=== PATIENT | male | born 1990 | race Caucasian/White ===

== ENCOUNTER 2023-01-19 09:15 | Emergency (ER) | payer SELFPAY ==
--- NOTE | ~2023-01-19 | CT_ITS ---
EXAMINATION: CT abdomen pelvis w con DATE: 01/19/2023 11:01 INDICATION: Right upper quadrant and epigastric pain TECHNIQUE: Computed tomography (CT) of the abdomen and pelvis was performed with 100 cc Omnipaque 350 intravenous contrast. The dose-length product was 703.41 mGy-cm. Automated exposure control and iter ative reconstruction technique were employed. COMPARISON: None. FINDINGS: Lung bases are unremarkable. No significant pleural or pericardial effusion. Heart size nor mal. No significant vascular abnormality. There are mildly prominent retroperitoneal lymph nodes, lik jacquelin reactive. The liver, spleen, pancreas, adrenal glands and left kidney are unremarkable. There is a 1.3 cm left renal cyst. Gallbladder is present. Nonobstructive bowel pattern. No abnormal pelvic masses or fluid collections. IMPRESSION: 1. No acute abdominal abnormality. Reviewed, dictated and finalized at location []
--- NOTE | ~2023-01-19 | US_ITS ---
US right upper quadrant INDICATION: Biliary colic. Cholecystitis. PROCEDURE: Realtime right upper abdominal ultrasound. COMPARISON: No prior studies for comparison. FINDINGS: The pancreas is normal without focal mass or pancreatic ductal dilation. Liver echotexture is normal without focal mass or intrahepatic biliary dilatation. There is normal directional flow i n the portal vein. The gallbladder is normal without stones, gallbladder wall thickening or pericholecystic fluid. Comm on bile duct measures 2 mm. No sonographic Saez's sign. IMPRESSION: 1: Normal limited abdominal ultrasound. Reviewed, dictated and finalized at location []
--- NOTE | ~2023-01-19 | XR_ITS ---
EXAMINATION: XR chest 1V portable 01/19/2023 10:47 INDICATION: Dyspnea. Right upper quadrant and epigastric pain. PROCEDURE: AP portable chest COMPARISON: No prior studies for comparison. FINDINGS: The lungs are clear. The cardiomediastinal silhouette is within normal limits. There are no pleural effusions. There is no pneumothorax suspected. IMPRESSION: 1: NO ACUTE CARDIOPULMONARY DISEASE. Reviewed, dictated and finalized at location []
[2023-01-19 09:27] VITALS: BP 131/63; PULSE 99; RESP 18; TEMP 36.9; O2SAT 97
[2023-01-19 09:33] LABS: Basophils Percent Auto 0.2 % (0.2-1.2); Eosinophils Absolute Auto 0.1 K/mm3 (0-0.3); Eosinophils Percent Auto 1.6 % (0-4.4); Hematocrit 50.7 % (42.0-52.0); Hemoglobin 16.8 g/dL (14.0-18.0); Immature Granulocyte Absolute 0.03 K/mm3 (0.00-0.031); Immature Granulocyte Percent A 0.4 % (0-0.5); Lymphocytes Absolute Auto 1.94 K/mm3 (0.9-3.2); Lymphocytes Percent Auto 23.8 % (18.3-44.2); Mean Corpuscular HGB Conc 33.1 g/dl (32-36); Mean Corpuscular Hemoglobin 30.8 pg (26-34); Mean Corpuscular Volume 92.9 fl (80-100); Mean Platelet Volume 10.6 fl (7.4-10.4); Monocytes Absolute Auto 0.5 K/mm3 (0.1-0.6); Monocytes Percent Auto 5.6 % (2.6-8.5); Neutrophils Absolute Auto 5.6 K/mm3 (1.3-6.7); Neutrophils Percent Auto 68.4 % (45.5-73.1); Platelet Count Result 225 k/mm3 (150-375); Red Blood Count 5.46 M/mm3 (4.6-6.20); Red Cell Distribution Width 13.7 % (11.5-14.5); White Blood Count 8.2 K/mm3 (4.5-10.0)
[2023-01-19 09:51] LABS: Alanine Aminotransferase 62 U/L (6-50); Albumin Level 4.6 g/dL (3.5-5.1); Alkaline Phosphatase 78 U/L (38-126); Anion Gap 7 mmol/L (8-16); Aspartate Amino Transferase 75 U/L (17-59); Bilirubin,Total 0.7 mg/dL (0.2-1.3); Blood Urea Nitrogen 20 mg/dL (9-20); Carbon Dioxide 30 mmol/L (22-30); Chloride 104 mmol/L (98-107); Estimated CRCL calculation 110 ml/min; Estimated Glomerular Filt Rate > 60; Glucose 107 mg/dL (65-110); Lipase 69 U/L (23-300); Potassium 4.5 mmol/L (3.4-5.0); Sodium 141 mmol/L (137-145)
--- NOTE | 2023-01-19 09:51 | ED.ABDPAIN ---
HPI - Abdominal Pain General Chief Complaint: Abdominal Pain Stated Complaint: gallbladder pain Time Seen by Provider: 01/19/23 09:18 History of Present Illness HPI narrative: 32-year-old male reports for evaluation of right upper quadrant abdominal pain x1 year, worsening over the past week. Patient states he is here to get his gallbladder removed . He states he had an ultrasound about a year and a half ago showing gallstones and was advised to follow-up with a general surgeon for elective cholecystectomy, however he never did. States in the past 1 to 2 weeks, the pain is worsened and is a sharp pain in his right upper quadrant. States it is worse after eating pizza and fried foods. Reports he recently followed up with his PCP requesting another ultrasound, however has not heard back so he came to the ED for further evaluation. Shortness of breath, fever, cough or congestion, nausea or vomiting, diarrhea, urinary complaints. Last bowel movement this morning was normal. Related Data Allergies Allergy/AdvReac Type Severity Reaction Status Date / Time No Known Allergies Allergy Verified 01/19/23 09:35 Review of Systems Review of Systems: CONSTITUTIONAL: Denies fever, chills EYES: Denies visual changes, redness, or discharge. ENT: Denies rhinorrhea, congestion, sore throat, or otalgia. CARDIOVASCULAR: Denies chest pain, palpitations, or edema. RESPIRATORY: Denies cough or dyspnea. GASTROINTESTINAL: See HPI GENITOURINARY: Denies dysuria or hematuria. SKIN: Denies rash or itching. MUSCULOSKELETAL: Denies back pain, joint pain, or myalgia. NEUROLOGIC: Denies headache, numbness, dizziness, or weakness. PSYCHIATRIC: Denies anxiety or depression. Exam Narrative: GENERAL: Well-appearing, in no acute distress. HEAD: Normocephalic EYES: PERRLA ENT: Nares clear. Mucous membranes moist. Oropharynx without tonsillar hypertrophy exudate or other lesions. NECK: Supple. CHEST: No respiratory distress. Clear to auscultation, no adventitious breath sounds. HEART: Regular rate and rhythm. No murmur heard. Normal peripheral pulses. ABDOMEN: Soft, normal active bowel sounds. Tender to palpation in the right upper quadrant and epigastrium extending superiorly overlying the xiphoid process. No gaurding or rigidity. Negative Saez's. Negative peritoneal signs. No CVA tenderness. EXTREMITIES: Normal range of motion. No edema. SKIN: Warm, dry, no rash. NEURO: No focal deficits. Alert and oriented x3. PSYCH: Normal mood and affect. Course Vital Signs Vital signs: Vital Signs Temperature 98.4 F 01/19/23 09:27 Pulse Rate 99 01/19/23 09:27 Respiratory Rate 18 01/19/23 09:27 Blood Pressure 131/63 01/19/23 09:27 Pulse Oximetry 97 01/19/23 09:27 Oxygen Delivery Room Air 01/19/23 09:27 Temperature 98.4 F 01/19/23 09:27 Pulse Rate 73 01/19/23 12:00 Respiratory Rate 17 01/19/23 12:00 Blood Pressure 134/82 01/19/23 12:00 Pulse Oximetry 98 01/19/23 12:00 Oxygen Delivery Room Air 01/19/23 09:27 MDM - Abdominal Pain MDM Narrative Medical decision making narrative: 32-year-old male reports for evaluation of right upper quadrant and epigastric abdominal pain x1 year, worsening over the past week. Vital stable, he is afebrile. Exam reveals tenderness to the epigastrium and right upper quadrant, extending into the lower aspect of the chest overlying the xiphoid process. CBC unremarkable. Chemistries with mildly elevated AST and ALT, normal bilirubin. Urinalysis unremarkable. Ultrasound obtained due to patient's concern for gallbladder disease showing normal gallbladder without stones, gallbladder wall thickening or pericholecystic fluid. CT then obtained showing no acute abdominal abnormality, there is a 1.3 cm left renal cyst. Chest pain work-up also initiated due to location of patient's symptoms. Troponin was normal, D-dimer not elevated. EKG shows sinus rhythm with sinus arrhythmia wi
[2023-01-19] MEDS: SODIUM CHLORIDE 0.9% IV 1,000 ML 999 ML IV CONT (10:13)
[2023-01-19] MEDS: KETOROLAC 30 MG/ML VIAL (*BKC) IV PUSH (10:14)
[2023-01-19] MEDS: FAMOTIDINE 20 MG/2 ML VIAL IV PUSH (10:15)
--- NOTE | 2023-01-19 10:37 | ECG_ITS ---
Measurements Intervals [place] Rate: 70 P: 54 HI: 150 QRS: 28 QRSD: 93 T: -2 QT: 339 QTc: 367 Interpretive Statements SINUS RHYTHM WITH SINUS ARRHYTHMIA NORMAL ELECTROCARDIOGRAM NO PREVIOUS ECG AVAILABLE FOR COMPARISON Electronically Signed On 01-19-2023 15:55:43 CDT by Jaime Hankins M.D.
[2023-01-19 10:41] LABS: Appearance Urine Clear (Clear); Bilirubin Urine Negative (Negative); Blood Urine Negative (Negative); Color Urine Yellow (Yellow); Glucose Urine UA Negative (Negative); Ketones Urine Negative (Negative); Leukocyte Esterase Ur Negative LEU/UL (Negative); Nitrate Urine Negative (Negative); Protein Urine Negative (Negative); Specific Grav Ur 1.019 (1.001-1.035); Urobilinogen Urine 0.2 mg/dL (<2.0); pH Urine 6.5 (5.0-9.0)
[2023-01-19 10:47] LABS: Add Urine Microscopic? NO
[2023-01-19] MEDS: BELLADONNA ALK/PHENOB ELIX 10 ML, MAG HYDROX/ALUMINUM HYD/SIMETH 30 ML, LIDOCAINE HCL 2... PO (11:18)
[2023-01-19 11:19] VITALS: BP 147/83; PULSE 83; RESP 18; O2SAT 99
[2023-01-19 11:32] LABS: D Dimer 0.23 ug/mL (<0.48)
[2023-01-19 11:35] LABS: Troponin I < 0.012 ng/mL (0.000-0.034)
[2023-01-19 12:00] VITALS: BP 134/82; PULSE 73; RESP 17; O2SAT 98
== END 2023-01-19 12:02 | disposition home or self-care (01) ==
PROVIDERS: Emergency Provider Physician Assistant
DX: R10.11 Right upper quadrant pain (principal); R10.13 Epigastric pain; N28.1 Cyst of kidney, acquired
CPT/HCPCS: 36415; 71045; 74177; 76705; 80053; 81003; 83690; 84484; 85025; 85380; 93005; 96361; 96374; 96375; 99284; A9270; J1885; J7030; Q9967